=== PATIENT | female | born 2000 | race Hispanic/Latino ===

== ENCOUNTER 2021-06-28 11:49 | Emergency (ER) | payer OTHER ==
[~2021-06-28] VITALS: Ht 162.6 cm; Wt 72.6 kg
[2021-06-28] MEDS ORDERED: ONDANSETRON HCL INJ 2MG/ML 2ML 2 MG/ML VIAL ONE (12:21)
[2021-06-28] MEDS ORDERED: SODIUM CHLORIDE 0.9% 1000ML 1,000 ML ONE (12:21)
[2021-06-28] MEDS ORDERED: FAMOTIDINE 20 MG/2 ML VIAL IV ONE (12:22)
[2021-06-28] MEDS ORDERED: KETOROLAC TROMETHAMINE 30 MG/ML VIAL ONE (12:22)
[2021-06-28] MEDS ORDERED: FAMOTIDINE 20 MG/2 ML VIAL IV STA (12:42)
[2021-06-28] MEDS ORDERED: KETOROLAC TROMETHAMINE 30 MG/ML VIAL IV STA (12:42)
[2021-06-28] MEDS ORDERED: SODIUM CHLORIDE 0.9% 1000ML 1,000 ML IV ONE (12:45)
[2021-06-28] MEDS ORDERED: PROMETHAZINE 25MG/ NS 50ML (IV) IV ONE (13:30)
[2021-06-28] MEDS ORDERED: PROMETHAZINE HCL (IM) 25 MG/ML VIAL IM ONE (14:04)
[2021-06-28] MEDS ORDERED: CEFTRIAXONE 1 GM VIAL ONE (14:05)
[2021-06-28] MEDS ORDERED: ONDANSETRON ODT4 MG PO (14:37)
[2021-06-28] MEDS ORDERED: CEFUROXIME500 MG PO (14:39)
== END 2021-06-28 14:53 | disposition home or self-care (01) ==
LOC: FSED 12:26
DX: R11.2 Nausea with vomiting, unspecified (principal); K52.9 Noninfective gastroenteritis and colitis, unspecified; N39.0 Urinary tract infection, site not specified; F41.9 Anxiety disorder, unspecified; N80.9 Endometriosis, unspecified
CPT/HCPCS: 80048; 80076; 81003; 81025; 85025; 87086; 96374; 96376; 99283; J0696; J1885; J2405; J2550; J7030

== ENCOUNTER 2021-12-07 17:13 | Emergency (ER) | payer OTHER ==
[~2021-12-07] VITALS: Ht 162.6 cm; Wt 72.6 kg
[~2021-12-07 17:13] MED LIST: CEFUROXIME500 MG PO; ONDANSETRON ODT4 MG PO
[2021-12-07] MEDS ORDERED: KETOROLAC TROMETHAMINE 60 MG/2 ML VIAL IM ONE (18:15)
[2021-12-07] MEDS ORDERED: KETOROLAC TROME10 MG PO (19:22)
== END 2021-12-07 19:39 | disposition home or self-care (01) ==
LOC: FSED 17:16
DX: R10.30 Lower abdominal pain, unspecified (principal); N80.9 Endometriosis, unspecified; F41.9 Anxiety disorder, unspecified
CPT/HCPCS: 99282; J1885